=== PATIENT | male | born 1960 | race Caucasian/White ===

== ENCOUNTER 2018-01-30 12:45 | Outpatient (RCR) | payer MEDICARE, OTHER ==
[~2018-01-30 12:45] MED LIST: ALEVE 220MG220 MG PO; AMBIEN 10MG10 MG PO; AQUAZIDE H50 MG PO; ASPIRIN E.C. 8181 MG PO; BENADRYL25 M2 PO; CELEBREX 200MG200 MG PO; CLARITIN 1010 MG/TAB PO; DOXYCYCLINE 10100 MG PO; FISH OIL 1000MG1 CAP PO; FISH OIL CONCEN1 SG1 PO; FISH OIL CONCEN1 SGL PO; FLEXERIL 1010 MG/TAB PO; FLEXERIL10 MG PO; FLONASE NASAL S16 GM NS; HCTZ 25MG TAB25 MG PO; INVANZ1 GM; LIPITOR20 MG PO; LOTREL 10 MG-201 CAP PO; LYRICA 150MG C150 MG PO; LYRICA50 MG PO; MOBIC 7.5MG7.5 MG PO; MOBIC15 MG PO; MORPHINE 1515 MG/TAB PO; MORPHINE SULFAT15 M2 PO; MS CONTIN 115 MG/TAB PO; NORCO 325 MG-7.1 TAB PO; NUPERCAINAL TP; PENNSAID 150 M150 ML TP; PREVACID 30MG30 M1 PO; PROBIOTIC FORMU1 CAP PO; ROXICODONE 55 MG/TAB PO; SENOKOT8.6 MG PO; STOOL SOFTENER100 M1 PO; THEO-24100 MG; ULTRAM 50MG TAB50 MG PO; VANCOMYCIN 11 G/VIAL IV; XARELTO10 MG PO; ZOFRAN 4MG T4 MG/TAB PO; [UNRECOGNIZED DRUG - REMARK]
== END 2018-02-25 08:04 | disposition home or self-care (01) ==
LOC: MKS.ESL.PT 12:45
DX: S39.012D Strain of muscle, fascia and tendon of lower back, subsequent encounter (principal); Z98.1 Arthrodesis status
CPT/HCPCS: G8978-GP; G8979-GP

== ENCOUNTER → 2020-06-08 | Outpatient (CLI) | payer MEDICARE, OTHER | LOC: COL.RAD 09:56 | DX: M25.511 Pain in right shoulder (principal); Z96.611 Presence of right artificial shoulder joint | CPT/HCPCS: Q9967 ==

== ENCOUNTER 2022-01-25 12:52 | Emergency (ER) | payer MEDICARE, OTHER ==
[~2022-01-25] VITALS: Ht 177.8 cm; Wt 115.5 kg
[2022-01-25 12:59] VITALS: TEMP 98.4
[2022-01-25 13:23] LABS: BASO % 0.2 % (0.0-2.0); GRAN # 8.4 K/mm3 (1.4-6.5); GRAN % 79.9 % (42.2-75.2); HEMATOCRIT 45.7 % (42.0-52.0); HEMOGLOBIN 16.3 g/dl (13.5-18.0); LYMPH # 1.2 K/mm3 (1.2-3.4); LYMPH % 11.6 % (20.0-51.0); MEAN CELL VOLUME 88 fl (80.0-100.0); MEAN CORPUSCULAR HEMOGLOBIN 31 pg (27-31); MEAN CORPUSCULAR HGB CONC 36 g/dl (33.0-37.0); MEAN PLATELET VOLUME 10.5 fl (7.4-10.4); MONO # 0.8 K/mm3 (0.1-0.6); MONO % 7.8 % (1.7-9.3); PLATELET COUNT 176 K/mm3 (130-400); RED BLOOD COUNT 5.21 M/mm3 (4.20-5.60); REDCELL DISTRIBUTION WIDTH-CV 13.3 % (11.5-14.5)
[2022-01-25 13:35] LABS: ALANINE AMINOTRANSFERASE 32 U/L (0-55); ALBUMIN 3.6 gm/dL (3.4-4.8); ALKALINE PHOSPHATASE 65 U/L (40-150); ANION GAP 12 mmol/L (7-16); AST,SGOT 32 U/L (5-34); BILIRUBIN,TOTAL 1.7 mg/dL (0.2-1.2); BLOOD UREA NITROGEN 9 mg/dL (8-26); CALCIUM 9.4 mg/dL (8.4-10.2); CARBON DIOXIDE 21 mmol/L (23-31); CHLORIDE 102 mmol/L (98-107); CREATININE, serum 0.77 mg/dL (0.72-1.25); GLUCOSE 121 mg/dL (70-99); POTASSIUM 3.5 mmol/L (3.5-4.5); SODIUM 135 mmol/L (136-145); TOTAL PROTEIN 6.6 gm/dL (6.2-8.1)
[2022-01-25 13:43] LABS: TROPONIN-I < 0.010 ng/mL (0.00-0.033)
[2022-01-25 15:48] VITALS: BP 141/84; PULSE 61
[2022-01-25] MEDS ORDERED: ELIQUIS 5MG PO (15:49)
== END 2022-01-25 16:02 | disposition home or self-care (01) ==
LOC: COL.ER 12:52
PROVIDERS: Physician Assistant
DX: R07.89 Other chest pain (principal); Z87.891 Personal history of nicotine dependence; Z79.01 Long term (current) use of anticoagulants; Z86.79 Personal history of other diseases of the circulatory system; Z28.310 Unvaccinated for COVID-19
CPT/HCPCS: J7030

== ENCOUNTER 2022-03-06 09:41 | Emergency (ER) | payer MEDICARE, OTHER ==
[~2022-03-06 09:41] MED LIST changes: +ELIQUIS 5MG PO
== END 2022-03-06 10:10 | disposition left against medical advice (07) ==
LOC: COL.ER 09:41
DX: R69 Illness, unspecified (principal)

== ENCOUNTER 2022-03-08 14:08 | Emergency (ER) | payer OTHER, MEDICARE ==
[~2022-03-08] VITALS: Ht 177.8 cm; Wt 113.6 kg
[2022-03-08 14:31] VITALS: TEMP 97.9
[2022-03-08 15:07] LABS: COLLECTION METHOD CLEAN CATCH
[2022-03-08 15:15] LABS: PH 7 (5-8); SQUAMOUS EPITHELIAL None Seen /hpf (0-10); URINE APPEARANCE Clear (CLEAR/HAZY); URINE BACTERIA None Seen /hpf (NONE SEEN); URINE BLOOD Negative (NEGATIVE); URINE COLOR Yellow (YELLOW); URINE GLUCOSE Negative (NEGATIVE); URINE KETONE Negative (NEGATIVE); URINE NITRATE Negative (NEGATIVE); URINE PROTEIN(semi-quant) Negative (NEGATIVE); URINE RBC 0-2 /hpf (0-2); URINE UROBILINOGEN Negative (NEGATIVE)
[2022-03-08 15:21] LABS: BASO % 0.2 % (0.0-2.0); EOS % 0.1 % (0.0-4.0); GRAN % 74.7 % (42.2-75.2); HEMOGLOBIN 17.5 g/dl (13.5-18.0); LYMPH % 16.4 % (20.0-51.0); MEAN CELL VOLUME 90 fl (80.0-100.0); MEAN CORPUSCULAR HEMOGLOBIN 31 pg (27-31); MEAN CORPUSCULAR HGB CONC 34 g/dl (33.0-37.0); MEAN PLATELET VOLUME 9.8 fl (7.4-10.4); MONO % 8.1 % (1.7-9.3); PLATELET COUNT 164 K/mm3 (130-400); RED BLOOD COUNT 5.67 M/mm3 (4.20-5.60)
[2022-03-08 15:39] LABS: ALBUMIN 3.4 gm/dL (3.4-4.8); BILIRUBIN,TOTAL 2.3 mg/dL (0.2-1.2); CALCIUM 9.2 mg/dL (8.4-10.2); CREATININE, serum 0.87 mg/dL (0.72-1.25); TOTAL PROTEIN 5.8 gm/dL (6.2-8.1)
[2022-03-08] MEDS ORDERED: PERCOCET 325 MG1 TA2 PO (17:03)
[2022-03-08] MEDS ORDERED: MEDROL 4MG DOSPA4 MG PO (17:03)
[2022-03-08 17:16] VITALS: BP 104/74; PULSE 83
== END 2022-03-08 17:16 | disposition home or self-care (01) ==
LOC: COL.ER 14:08
PROVIDERS: Physician Assistant
DX: M48.07 Spinal stenosis, lumbosacral region (principal); G89.29 Other chronic pain; Z98.1 Arthrodesis status; Z28.310 Unvaccinated for COVID-19
CPT/HCPCS: J1100; J1170; J2360